=== PATIENT | female | born 1960 | race Caucasian/White ===

== ENCOUNTER → 2017-02-28 19:02 | Outpatient (CLI) | payer MEDICAID ==
[2013-05-21 10:24] VITALS: BMI 18.6
[~2017-02-28 19:02] MED LIST: ARICEPT5 MG PO; ATIVAN1 MG PO; COGENTIN1 MG PO; DEPAKOTE ER500 MG PO; DEPAKOTE500 MG PO; DUONEB 2.5-0.5 M3 ML UPD; FERROUS SULFAT325 MG PO; IPRAT-ALBUT 0.5-3 ML NEB; LEVAQUIN500 MG PO; LOVENOX40 MG/0.4 SQ; MULTI-DAY VITAM1 TAB; NEURONTIN 100100 MG PO; NORCO 10/325 TA1 TA1 PO; PROTEIN LIQUID30 ML PO; ROCEPHIN 1 GM IN1 GM IV; SEROQUEL400 MG PO; SYNTHROID100 MCG PO; SYNTHROID75 MCG; TYLENOL 8 HOUR650 MG PO; VITAMIN B-121000 MC3 PO; WELLBUTRIN XL150 M1 PO; XARELTO20 MG PO; ZITHROMAX 500M500 MG IV
== END | disposition home or self-care (01) ==
LOC: D.MAMMO 15:00
DX: Z12.31 Encounter for screening mammogram for malignant neoplasm of breast (principal)